=== PATIENT | male | born 1935 | race Two or more races ===

== ENCOUNTER 2018-08-24 09:02 | Inpatient (IN) | payer OTHER ==
[~2018-08-24] VITALS: Ht 180.3 cm; Wt 90.7 kg
[2018-09-13] MEDS ORDERED: AMILODIPINE PO (08:07)
[2018-09-13] MEDS ORDERED: CATOPRIL PO (08:07)
[2018-09-20] MEDS ORDERED: CAPTOPRIL12.5 MG PO (08:03)
[2018-09-20] MEDS ORDERED: NORVASC5 MG PO (08:03)
[2018-09-20] MEDS ORDERED: SIMVASTATIN20 MG PO (08:04)
[2018-09-22] MEDS ORDERED: ELIQUIS2.5 MG PO (13:54)
[2018-09-22] MEDS ORDERED: DUI500 PO (13:54)
[2018-09-22] MEDS ORDERED: PERCOCET 5-3251 EACH PO (13:54)
== END 2018-09-22 16:43 | DRG 470 ==
LOC: SURG 09-13 07:00 → O/R 09-20 05:50 → SURG 09-20 07:00
PROVIDERS: ADMIT Orthopaedic Surgery
PROC: 0MNP0ZZ Release Left Knee Bursa and Ligament, Open Approach (ICD-10-PCS; 2018-09-20)
PROC: 0SRD0J9 Replacement of Left Knee Joint with Synthetic Substitute, Cemented, Open Approach (ICD-10-PCS; principal; 2018-09-20 07:00)
DX: M17.12 Unilateral primary osteoarthritis, left knee (principal); D62 Acute posthemorrhagic anemia; Z96.652 Presence of left artificial knee joint